=== PATIENT | male | born 1995 | race Asian ===

== ENCOUNTER 2017-02-17 18:20 | Emergency (ER) | payer MEDICAID ==
[~2017-02-17] VITALS: Ht 165.1 cm; Wt 106.0 kg
[2017-02-17 18:41] VITALS: BP 129/72
== END 2017-02-17 20:34 | disposition home or self-care (01) ==
LOC: EMS 18:21
DX: H00.025 Hordeolum internum left lower eyelid (principal); J45.909 Unspecified asthma, uncomplicated
CPT/HCPCS: 99281